=== PATIENT | male | born 1990 | race Caucasian/White ===

== ENCOUNTER 2018-07-03 11:52 | Emergency (ER) | payer MEDICAID ==
--- NOTE | 2018-07-03 12:40 | CPEKG ---
Test Reason : OPEN Blood Pressure : / mmHG Vent. Rate : 075 BPM Atrial Rate : 076 BPM P-R Int : 167 ms QRS Dur : 122 ms QT Int : 382 ms P-R-T Axes : 070 090 046 degrees QTc Int : 427 ms Sinus rhythm RBBB and LPFB ST elev, probable normal early repol pattern Confirmed by Austin Brooks ([id number]) on 07/03/2018 12:39:32 PM Referred By: PHYSICIAN ED Confirmed By:Austin Brooks
[2018-07-03] MEDS ORDERED: KETOROLAC 30 MG/1 ML SDV IVP ONE (12:56)
--- NOTE | 2018-07-03 12:56 | EDPHY ---
General Time Seen by Provider: 07/03/18 12:55 Narrative: CLINICAL IMPRESSION: Chest pain ASSESSMENT/PLAN: Patient is a 28-year-old male with no significant medical history who presents to the emergency department with left-sided chest discomfort with radiation into his back, worsened with sitting forward. Patient is afebrile, he is uncomfortable appearing however not toxic-appearing. The patient was placed on school lunch monitor and and ECG was immediately obtained- revealed nonspecific ST changes including mild elevation in lead 2, V2 and V3; reviewed by Dr. Brooks. Troponin 0. CBC with no evidence of leukocytosis or significant anemia. BMP with no significant metabolic abnormality or evidence of acute kidney injury. Hepatic panel and Lipase normal. Chest x-ray revealed no evidence of acute cardiopulmonary abnormality. Perc negative, well's criteria 0- low suspicion for PE. This patient presents with chest pain that is very atypical for angina or acute coronary syndrome. He had a very reassuring workup in the emergency department , query mild pericarditis in light of chest pain that worsens with leaning forward (no appreciable rub). Other life-threatening diagnoses such as ACS, pulmonary embolism, aortic dissection, pneumothorax, pneumonia, Alcira-Joshua tear, boerhaave syndrome, pancreatitis, pleuritis, pleurisy, gastritis, mediastinitis and myocarditis have been considered however low clinical suspicion. The patient was given Toradol and a GI cocktail with near resolution of his symptoms in the emergency department. On repeat examination the patient reports that he is feeling much better and is very reassured by findings today. A cardiology consult has been placed, he was also given a referral for a primary care provider as he does not have one. He will continue anti-inflammatories as needed. Conservative return precautions discussed- he will return for any symptom concern, particularly chest pain, shortness of breath, rapid or irregular heartbeat, unusual fatigue, cough, coughing up blood or discolored sputum, swelling, dizziness, weakness, fainting, nausea, vomiting , abdominal pain, fever, chills, headache, or for any other new, worsening, or worrisome symptoms. Patient verbalizes understanding and he is in agreement with plan. DIFFERENTIAL DX: Chest pain including but not limited to myocardial ischemia, pulmonary embolus, chest wall pain, pleural inflammation and pulmonary infectious causes. ED COURSE: 1255: Case discussed with Dr. Brooks. ECG was reviewed by him which revealed nonspecific ST changes, normal rate at 75. 1432: Dr. Brooks evaluated this patient. Patient is feeling better, stable for discharge with conservative return precautions and follow-up with Cardiology. CHIEF COMPLAINT: Left-sided chest pain HPI: Patient is a 28-year-old male with no significant medical history who presents to the emergency department with left-sided chest discomfort with radiation into his back, worsened with sitting forward. Patient reports last evening at approximately 7:00 p.m. he was sitting watching a movie, around 12 midnight he started to experience some left inferior chest wall pressure, this was constant. He was able to fall sleep for a short period however woke up this morning with worsening and sharp left-sided chest pain which is exacerbated with sitting forward. He does endorse some radiation into his left scapula, denies any associated nausea or diaphoresis. No history of similar episodes in the past. It has been constant since this morning and he has not tried taking anything for the pain. He denies any recent fevers, runny nose, congestion or cough. He denies any hemoptysis. He has had no recent trauma, increased activity or surgery. He denies any abdominal pain or vomiting. He does feel that he has had some increased stomach gas, the pain does mildly relieved when he belches. Bowel movements have been normal and he denies any urinary symptoms. PMH: Seasonal allergies Pertinent Past Surgical History: Denies Family History: Noncontributory Social History: Occasional alcohol, denies cigarette smoking or illicit drug use. REVIEW OF SYSTEMS: All other systems negative Constitutional: No fever, no chills, appetite change. Eyes: No discharge, vision change ENT: No sore throat, congestion, ear pain. Cardiovascular: Left-sided chest pain. No palpitations. Respiratory: No cough, no shortness of breath. Gastrointestinal: No abdominal pain, no vomiting, diarrhea. Genitourinary: No hematuria, dysuria, flank pain, pelvic pain Musculoskeletal: No joint swelling, joint pain, myalgias. Skin: No rashes, color change. Neurological: No headache, dizziness, weakness. PHYSICAL EXAM: General Appearance: Well-developed, no acute distress. HENT: Normocephalic, atraumatic. Bilateral external ears are normal. Bilateral tympanic membranes are normal with pearly mas reflex. Nares are clear, mucosa is pink. Oropharynx is clear, uvula is midline. There is no tonsillar enlargement or exudate. The dentition is normal. Eyes: PERRLA, no acute vision change, nystagmus, swelling, discharge, pain or photosensitivity. Conjunctiva pink, no pallor or injection Neck: Supple, nontender, no lymphadenopathy, no midline pain, FROM, no meningismus. Respiratory: There are no retractions, lungs are clear to auscultation. Chest wall is nontender to palpation. Cardiac: Regular rate and rhythm, no murmurs or gallops. No appreciable rub on examination. Gastrointestinal: Abdomen is soft, nontender, bowel sounds normal, no masses/ hernia, no rigidity, guarding or focal peritoneal findings. Neurological: Alert and oriented x 3, CN 2-12 grossly intact, normal gait no ataxia, DTR's intact, normal sensation and strength Skin: Warm, dry, no rashes, no nodules on palpation. Musculoskeletal: Extremities are symmetrical, full range of motion, no tenderness, deformity, swelling, or erythema. Psychiatric: Patient is oriented X 3, there is no agitation. MEDICAL DECISION MAKING: Patient was seen independently. Secondary supervising physician at time of evaluation was Dr. Brooks, he did not evaluate this patient however we discussed case and plan of care. Diagnosis: Chest pain. New, requires workup Summary: See Assessment and Plan for summary of ED visit Clinical lab tests: ordered / reviewed. Independent visualization of images, tracing, or specimens: Yes. Decision to obtain medical records or history from someone other than the patient: No Review / Summarize previous medical records: Yes Discussed patient with another provider: Yes, Dr. Brooks Patient Progress: Stable, discharged . - Diagnostics Imaging Results: Imaging Impressions Chest X-Ray 07/03/18 12:54 IMPRESSION: Normal chest x-ray. - History Smoking Status: Never smoked - Objective Vital Signs: Initial Vital Signs Temperature (C) 36.6 C 07/03/18 11:55 Heart Rate 80 07/03/18 11:55 Respiratory Rate 19 07/03/18 11:55 Blood Pressure 124/78 H 07/03/18 11:55 O2 Sat (%) 99 07/03/18 11:55 O2 Delivery Mode Room Air Allergies/Adverse Reactions: Penicillins Allergy (Verified 07/03/18 11:54) Home Medications: Medication Instructions Recorded Claritin 07/03/18 Laboratory Results: Laboratory Results 07/03/18 12:35 07/03/18 12:35 07/03/18 07/03/18 07/03/18 12:39 12:35 12:35 WBC 5.48 10^3/uL 10^3/uL (3.80-9.50) RBC 5.89 10^6/uL 10^6/uL (4.40-6.38) Hgb 18.1 g/dL H g/dL (13.7-17.5) Hct 52.1 % H % (40.0-51.0) MCV 88.5 fL fL (81.5-99.8) MCH 30.7 pg pg (27.9-34.1) MCHC 34.7 g/dL g/dL (32.4-36.7) RDW 11.7 % % (11.5-15.2) Plt Count 263 10^3/uL 10^3/uL (150-400) MPV 8.5 fL L fL (8.7-11.7) Neut % (Auto) 31.3 % L % (39.3-74.2) Lymph % (Auto) 60.4 % H % (15.0-45.0) [place] % (Auto) 7.1 % % (4.5-13.0) Eos % (Auto) 0.5 % L % (0.6-7.6) Baso % (Auto) 0.5 % % (0.3-1.7) Nucleat RBC Rel Count 0.0 % % (0.0-0.2) Absolute Neuts (auto) 1.71 10^3/uL 10^3/uL (1.70-6.50) Absolute Lymphs (auto) 3.31 10^3/uL H 10^3/uL (1.00-3.00) Absolute Monos (auto) 0.39 10^3/uL 10^3/uL (0.30-0.80) Absolute Eos (auto) 0.03 10^3/uL 10^3/uL (0.03-0.40) Absolute Basos (auto) 0.03 10^3/uL 10^3/uL (0.02-0.10) Absolute Nucleated RBC 0.00 10^3/uL 10^3/uL (0-0.01) Immature Gran % 0.2 % % (0.0-1.1) Immature Gran # 0.01 10^3/uL 10^3/uL (0.00-0.10) Sodium 140 mEq/L mEq/L (135-145) Potassium 4.2 mEq/L mEq/L (3.5-5.2) Chloride 103 mEq/L mEq/L (97-110) Carbon Dioxide 24 mEq/l mEq/l (22-31) Anion Gap 13 mEq/L mEq/L (6-14) BUN 14 mg/dL mg/dL (7-23) Creatinine 1.1 mg/dL mg/dL (0.7-1.3) Estimated GFR > 60 Glucose 84 mg/dL mg/dL (70-100) Calcium 10.1 mg/dL mg/dL (8.5-10.4) Total Bilirubin 1.2 mg/dL mg/dL (0.1-1.4) Conjugated Bilirubin 0.5 mg/dL mg/dL (0.0-0.5) Unconjugated Bilirubin 0.7 mg/dL mg/dL (0.0-1.1) AST 29 IU/L IU/L (17-59) ALT 18 IU/L L IU/L (21-72) Alkaline Phosphatase 77 IU/L IU/L (38-126) POC Troponin I 0.00 ng/mL ng/mL (0.00-0.08) Total Protein 8.3 g/dL H g/dL (6.3-8.2) Albumin 5.1 g/dL H g/dL (3.5-5.0) Lipase 113 IU/L IU/L (23-300) Medications Given: Discontinued Medications Al Hydroxide/Mg Hydroxide (Maalox Susp) 30 ml PO ONCE ONE Stop: 07/03/18 13:00 Last Admin: 07/03/18 13:33 Dose: 30 ml Hyoscyamine Sulfate (Levsin, Hyomax-Sl) 0.25 mg PO ONCE ONE Stop: 07/03/18 13:00 Last Admin: 07/03/18 13:32 Dose: 0.25 mg Ketorolac Tromethamine (Toradol) 30 mg IVP EDNOW ONE Stop: 07/03/18 12:57 Last Admin: 07/03/18 12:59 Dose: 30 mg Lidocaine (Lidocaine 2% Viscous) 15 ml PO ONCE ONE Stop: 07/03/18 13:00 Last Admin: 07/03/18 13:33 Dose: 15 ml Point of Care Test Results: Chemistry 07/03/18 12:39 POC Troponin I 0.00 ng/mL ng/mL (0.00-0.08) Departure - Departure Disposition: Home, Routine, Self-Care Clinical Impression: Chest pain Qualifiers: Chest pain type: unspecified Qualified Code(s): R07.9 - Chest pain, unspecified Condition: Good Instructions: Chest Pain (ED) Additional Instructions: DISCHARGE INSTRUCTIONS FROM YOUR DOCTOR Thank you for visiting our emergency department today. Please keep in mind that discharge from the emergency department does not mean that there is nothing wrong - it simply means that we have not identified an emergency condition that requires further evaluation or treatment in the hospital. You should always plan to follow up with primary care for re-evaluation of your condition in the next 2-3 days. The exact cause of your chest pain was not identified. The tests we have performed are essentially normal. Serious causes of chest pain are still possible, therefore. If the pain persists tomorrow, you should return for a recheck. We have given you a referral for Cardiology, please call to schedule a follow-up appointment if you do not hear from them. Continue taking anti-inflammatory, I recommend 400 mg of ibuprofen every 4 hr. Do not exceed 2400 mg in a 24 hr period. Rest, eat healthy well balanced low carbohydrate diet and pursue exercise/ activity as allowed by your primary care provider or hospice bereavement coordinator. Try and reduce stress as much as possible. Continue your regular medications as prescribed. Schedule a follow-up appointment with your primary care provider in the next 1- 2 days for close re-evaluation. Return for any symptom concern, particularly chest pain, shortness of breath, rapid or irregular heartbeat, unusual fatigue, cough, coughing up blood or discolored sputum, swelling, dizziness, weakness, fainting, nausea, vomiting, abdominal pain, fever, chills, headache, or for any other new, worsening, or worrisome symptoms. People present with illnesses and injuries in different ways, and it is always possible that we have missed something. You may always return for re-evaluation if symptoms worsen or if they are not improving or if you develop new/different symptoms. Again, thank you for choosing our emergency department. We hope that you feel better. Referrals: Karen Kingsley MD [Medical Doctor] - As per Instructions (Please establish care with a primary care provider) Arnold Kennedy MD [Medical Doctor] - 2-3 days, call for appt.
[2018-07-03] MEDS ORDERED: HYOSCYAMINE SULFATE 0.125 MG TAB PO ONE (12:59)
[2018-07-03] MEDS ORDERED: LIDOCAINE 2% VISCOUS 15 ML UDCUP PO ONE (12:59)
[2018-07-03] MEDS ORDERED: MAG HYDROX/AL HYDROX/SIMETH 30 ML UDCUP PO ONE (12:59)
[2018-07-03 13:04] LABS: PLATELET COUNT 263 10^3/uL (150-400)
[2018-07-03 14:46] VITALS: BP 125/68
== END 2018-07-03 14:46 | disposition home or self-care (01) ==
DX: R07.89 Other chest pain (principal)
CPT/HCPCS: 84484-ER; 96374; J1885